=== PATIENT | female | born 1990 | race Caucasian/White ===

== ENCOUNTER → 2017-09-13 | Outpatient (CLI) | payer BC ==
--- NOTE | 2017-09-13 13:19 | Diagnostic Imaging Report ---
Ultrasound of the aorta. INDICATION: Marfan syndrome. FINDINGS: The abdominal aorta is normal in caliber measuring up to 2 cm. The mid abdominal aorta is also 2 cm and distally is 1.7 cm in caliber. The right common iliac artery is 1 cm and the left common iliac artery is also 1 cm in caliber. There is flow seen. Minimal plaque is demonstrated. IMPRESSION: Normal caliber of the abdominal aorta seen. Dictated by: Dictated on workstation # [id number]
--- NOTE | 2017-09-13 16:24 | Diagnostic Imaging Report ---
EXAMINATION: Magnetic resonance imaging of the left shoulder without contrast. DATE: September 13, 2017. COMPARISON: None. INDICATION: 27-year-old female, left shoulder pain. History of recent flu shot. TECHNIQUE: Magnetic Resonance Imaging sequences were performed of the shoulder without contrast. FINDINGS: ROTATOR CUFF, LIGAMENTS, TENDONS, AND MUSCLES: The supraspinatus tendon and infraspinatus tendon are somewhat thin but completely intact. The subscapularis and teres minor tendons are intact. There is normal rotator cuff muscle bulk and signal. LONG HEAD OF BICEPS: The biceps labral attachment and long head of the biceps tendon is intact. The long head of the biceps tendon is normally positioned within the bicipital groove. GLENOHUMERAL JOINT: The humeral head is well positioned relative to the glenoid. The labrum is grossly intact. There is no identified paralabral cyst. The articular cartilage is grossly intact. There is no joint effusion. ACROMIOCLAVICULAR JOINT: The acromioclavicular joint is normally aligned. The coracoclavicular and coracoacromial ligaments are intact. There are no degenerative changes of the acromioclavicular joint. BONE: The bones all have normal configuration. The bone marrow signal is within normal limits. Specifically, negative for fracture, osteomyelitis, osteonecrosis, or marrow replacing process. BURSAE AND SOFT TISSUES: There is a very small amount of fluid in the subacromial subdeltoid bursa which is within normal limits for detection on MRI. The additional soft tissues are unremarkable. There is no focal fluid collection. IMPRESSION: 1. Unremarkable MRI of the left shoulder without contrast. Dictated by: Dictated on workstation # [id number]
== END ==
LOC: RAD 08:07
PROVIDERS: ATTEND Nurse Practitioner Family
DX: M25.511 Pain in right shoulder (principal); Q87.40 Marfan syndrome, unspecified
CPT/HCPCS: 73221; 76775

== ENCOUNTER → 2017-10-11 | Outpatient (CLI) | payer BC | LOC: CARD 11:28 → EDUNIT# 12:00 | PROVIDERS: ATTEND Nurse Practitioner Family | DX: Q87.40 Marfan syndrome, unspecified (principal) | CPT/HCPCS: 93306 ==